=== PATIENT | male | born 2000 | race Caucasian/White ===

== ENCOUNTER 2019-06-10 22:31 | Observation (INO) ==
[2019-06-10] MEDS ORDERED: SODIUM CHLORIDE 0.9% 1000ML 2,000 ML IV ONE (22:44)
[2019-06-10] MEDS ORDERED: MoRPHine SULFATE 4 MG/ML 1 ML CARP\\VIAL IV STA (22:51)
[2019-06-10] MEDS ORDERED: ONDANSETRON INJ 2 MG/ML 2 ML VIAL IV STA (22:51)
[2019-06-10 23:21] LABS: Basophils # (auto) 0.01 K/uL (0-0.2); Basophils % (auto) 0.2 %; Eosinophils # (auto) 0.01 K/uL (0-0.5); Eosinophils % (auto) 0.2 %; Hematocrit (blood only) 41.9 % (42-52); Immature Granulocytes # (auto) 0.01 K/uL (0.00-0.02); Immature Granulocytes % (auto) 0.2 %; Lymphocytes # (auto) 1.11 K/uL (1.2-3.4); Lymphocytes % (auto) 16.8 %; Mean Corpuscular Hemoglobin 31.7 pg (25-34); Mean Corpuscular Hgb Conc 35.8 g/dL (32-36); Mean Corpuscular Volume 88.6 fL (80-100); Mean Platelet Volume 9.8 fL (7.4-10.4); Monocytes # (auto) 0.73 K/uL (0.11-0.59); Monocytes % (auto) 11.1 %; Neutrophils # (auto) 4.73 K/uL (1.4-6.5); Neutrophils % (auto) 71.5 %; Platelet Count 196 K/uL (130-400); RDW Standard Deviation 42.2 fL (36.4-46.3); Red Blood Count 4.73 M/uL (4.7-6.1)
[2019-06-10 23:40] LABS: Albumin Level 3.7 gm/dl (3.4-5.0); BUN Creatinine Ratio 13.3 (10-20); Est GFR (Non-African American) 125.1; Potassium 3.1 mmol/L (3.5-5.1)
[2019-06-10 23:43] LABS: Albumin Globulin Ratio 0.8 (0.9-2); Bilirubin,Total 0.6 mg/dl (0.2-1); Globulin 4.6 gm/dl (2.5-4.0); Total Protein 8.4 gm/dl (6.4-8.2)
[2019-06-10] MEDS ORDERED: IOVERSOL 100ml IV PRN (23:44)
[2019-06-11] MEDS ORDERED: KETOROLAC TROMETHAMINE 15 MG/ML VIAL IV ONE (00:21)
[2019-06-11] MEDS ORDERED: HYDROmorphone INJ 0.5 MG/0.5 ML SYR IV STA (00:21)
[2019-06-11] MEDS ORDERED: SODIUM CHLORIDE 0.9% 1000ML 1,000 ML IV ONE (00:21)
--- NOTE | 2019-06-11 00:54 | Emergency Department Note ---
Entered by Ruth Sheth acting as a scribe for Rudy León DO History of Present Illness General Chief complaint: Abdominal Pain Stated complaint: ULCERATIVE COLITIS,STOMACH PAINS,CRAMPS Source: patient History of Present Illness Provider complaint: abdominal pain Onset (ago): hour(s) (this morning) Location: abdomen (mid) Severity: similar to prior episodes Pain Consistency: + other (worsening) Maximum Pain Intensity: 7 Relieved By: + none Associated symptoms: + nausea/vomiting and + other (+diarrhea, -pain/burning during urination, +cough, +runny nose) The patient is a 18 year old male who presents to the Emergency Room with complaints of worsening abdominal pain that started this morning. The patient reports that he has a history of ulcerative colitis and this pain feels worse than normal. He notes that he was diagnosed several months ago by Dr. Barker. He notes that had 3 episodes of nausea and vomiting today. He states that she has been experiencing diarrhea since yesterday. He denies any pain or burning during urination. He mentions that he has been experiencing cough and runny nose for the past week which has since resolved. Patient normally does not have vomiting. He notes his pain is in the lower right/infraumbilical region and he also does have some in the epigastric region. Home Medications Home Medications Medication Instructions Recorded Confirmed Type azathioprine [Imuran] 0 mg PO QAM 06/11/19 06/11/19 History budesonide 0 mg PO TID 06/11/19 06/11/19 History Allergies Allergy/AdvReac Type Severity Reaction Status Date / Time No Known Allergies Allergy Unverified 06/11/19 01:01 Past Med/Surg History Medical History Ulcerative colitis Social History Preferred Language: Greenlandic Feels Safe at Home: Yes Smoking Status: Never smoker Review of Systems See HPI for pertinent positives & negatives. and A total of 10 systems reviewed and were otherwise negative Physical Exam Vital Signs Vital Signs - 24 hr 06/10/19 22:34 06/10/19 23:40 Temperature 36.6 C Temperature Source Oral Pulse Rate 80 Respiratory Rate 18 Respiratory Effort / Characteristics Non-Labored Spontaneous Respiratory Depth Normal Respiratory Pattern Regular Blood Pressure 122/84 Blood Pressure Mean 96 Blood Pressure Position Sitting Pulse Oximetry 99 95 Oxygen Delivery Method Room Air Room Air Sepsis Recent Fever Within 48 Hours No Sepsis Action Taken by Nursing No Action Required GENERAL: alert, well nourished, sitting up in bed, disheveled, non-toxic EYE EXAM: normal conjunctiva OROPHARYNX: no exudate, no erythema, lips, buccal mucosa, and tongue normal and mucous membranes are moist NECK: supple, no nuchal rigidity, no adenopathy, non-tender LUNGS: Clear to auscultation. Normal chest wall mechanics HEART: no murmurs, S1 normal and S2 normal ABDOMEN: abdomen soft, tenderness to palpation of supraumbilical/RLQ area, normo-active bowel sounds, no masses, no rebound or guarding. BACK: Back is symmetrical on inspection and there is no deformity, no midline tenderness, no CVA tenderness. SKIN: no rashes and no bruising UPPER EXTREMITIES: upper extremities are grossly normal. LOWER EXTREMITIES: No pitting edema. NEURO EXAM: Normal sensorium, cranial nerves II-XII grossly intact, normal speech, no gross weakness of arms, no gross weakness of legs. Course Course ED COURSE: Vital signs were reviewed and showed normotensive The patients medical record was reviewed The above diagnostic studies were performed and reviewed. ED treatments and interventions as stated above. 2245: The patient was evaluated in room C2B. A complete history and physical examination was performed. 1220: I reevaluated the patient and updated him on his results. 0055: Received a phone call from [facility] about acute appendicitis. 0056: Discussed with Dr. Benitez who will evaluate the patient for acute appendicitis. 0058: Patient was updated at bedside and all questions were answered. Based on the patients age, coexisting illnesses, exam and lab findings the decision to treat as an inpatient was made. The patient remained stable while under my care. Administered Medications Sodium Chloride (Nss 1000ml) 1,000 mls @ 999 mls/hr IV .Q1H1M ONE Stop: 06/11/19 01:21 Last Admin: 06/11/19 00:42 Dose: 999 mls/hr Documented by: [id number] Ioversol (Optiray 320 100ml) 100 ml IV ONCE PRN PRN Reason: Interaction Checking Stop: 06/14/19 23:43 Last Admin: 06/10/19 23:44 Dose: 92 ml Documented by: [id number] Discontinued Medications Hydromorphone HCl (Dilaudid) 0.5 mg IV NOW STA Stop: 06/11/19 00:22 Last Admin: 06/11/19 00:41 Dose: 0.5 mg Documented by: [id number] Sodium Chloride (Nss 1000ml) 2,000 mls @ 999 mls/hr IV .Q2H1M ONE Stop: 06/11/19 00:44 Last Admin: 06/10/19 23:29 Dose: 999 mls/hr Documented by: [id number] Ketorolac Tromethamine (Toradol) 15 mg IV NOW ONE Stop: 06/11/19 00:22 Last Admin: 06/11/19 00:42 Dose: 15 mg Documented by: [id number] Morphine Sulfate (Morphine Sulfate) 4 mg IV NOW STA Stop: 06/10/19 22:52 Last Admin: 06/10/19 23:30 Dose: 4 mg Documented by: [id number] Ondansetron HCl (Zofran) 4 mg IV NOW STA Stop: 06/10/19 22:52 Last Admin: 06/10/19 23:29 Dose: 4 mg Documented by: [id number] Medical Decision Making Differential Diagnosis Differential diagnoses includes but is not limited to gastritis, peptic ulcer disease, GERD, gallbladder disease, pancreatitis, small bowel obstruction, acute coronary syndrome, pericarditis, ischemic bowel, irritable bowel disease, irritable bowel syndrome, appendicitis, diverticulitis, malignancy, hernia, urinary tract infection, torsion, perforation, trauma, infectious. Medical Records Attestation: I reviewed the patient's medical records. Home Medications Current Medication List: was personally reviewed by me Laboratory Data Attestation: I reviewed the patient's lab results. Result diagrams: 06/10/19 23:02 06/10/19 23:02 Lab Results 06/10/19 06/10/19 Range/Units 23:02 23:02 WBC 6.60 (4.8-10.8) K/uL RBC 4.73 (4.7-6.1) M/uL Hgb 15.0 (14.0-18.0) g/dL Hct 41.9 L (42-52) % MCV 88.6 (80-100) fL MCH 31.7 (25-34) pg MCHC 35.8 (32-36) g/dL RDW Std Deviation 42.2 (36.4-46.3) fL RDW Coeff of Oneil 13.0 (11.5-14.5) % Plt Count 196 (130-400) K/uL MPV 9.8 (7.4-10.4) fL Immature Gran % (Auto) 0.2 % Neut % (Auto) 71.5 % Lymph % (Auto) 16.8 % Snyder % (Auto) 11.1 % Eos % (Auto) 0.2 % Baso % (Auto) 0.2 % Immature Gran # (Auto) 0.01 (0.00-0.02) K/uL Neut # (Auto) 4.73 (1.4-6.5) K/uL Lymph # (Auto) 1.11 L (1.2-3.4) K/uL Snyder # (Auto) 0.73 H (0.11-0.59) K/uL Eos # (Auto) 0.01 (0-0.5) K/uL Baso # (Auto) 0.01 (0-0.2) K/uL Sodium 138 (136-145) mmol/L Potassium 3.1 L (3.5-5.1) mmol/L Chloride 104 (98-107) mmol/L Carbon Dioxide 26 (21-32) mmol/L Anion Gap 8.0 (3-11) BUN 12 (7-18) mg/dl Creatinine 0.87 (0.6-1.4) mg/dl Est Cr Clr Drug Dosing 114.0 ml/min Est GFR ( Amer) 145.0 Est GFR (Non-Af Amer) 125.1 BUN/Creatinine Ratio 13.3 (10-20) Glucose 98 (70-99) mg/dl Calcium 9.0 (8.5-10.1) mg/dl Total Bilirubin 0.6 (0.2-1) mg/dl AST 10 L (15-37) U/L ALT 15 (12-78) U/L Alkaline Phosphatase 69 (45-117) U/L Total Protein 8.4 H (6.4-8.2) gm/dl Albumin 3.7 (3.4-5.0) gm/dl Globulin 4.6 H (2.5-4.0) gm/dl Albumin/Globulin Ratio 0.8 L (0.9-2) Lipase 44 L (73-393) U/L Blood Pressure Blood Pressure Findings: Elevated blood pressure Blood Pressure Disposition: Referred to patients primary care provider RONDA Narrative Patient is a 18-year-old male with a past medical history of ulcerative colitis diagnosed several months ago followed at [facility] who presents the ER for infraumbilical abdominal pain associated with nausea vomiting and he does have some mild diarrhea. IV was established blood work was obtained and showed no significant leukocytosis or anemia. BMP with mild hypokalemia. LFTs bilirubin and lipase was unremarkable. Patient was acutely tender to palpation consequently CT abdomen pelvis was performed and showed acute appendicitis measuring 1.1 cm. Patient was given IV cefoxitin. He was given 2 dose of IV morphine and Zofran. He was updated bedside. Discussed with general surgery and they will evaluate the patient. Impression & Plan Acute appendicitis, Abdominal pain, Acute hypokalemia Discharge Plan Visit Data Chief Complaint: Abdominal Pain Stated Complaint: ULCERATIVE COLITIS,STOMACH PAINS,CRAMPS ED Provider: Rudy León Discharge Problem: Acute appendicitis, Abdominal pain, Acute hypokalemia Patient Disposition: Being Evaluated by Hospitalist Forms Stand Alone Forms: [facility] [employer] Prescriptions Prescriptions: No Action budesonide 3 mg Capsule,Delayed,Extend.Release 0 mg PO TID RF: 0 azathioprine [Imuran] 50 mg Tablet 0 mg PO QAM RF: 0 Referrals Referrals: PCP,NO [Primary Care Provider] - Discharge Problem: Acute appendicitis Qualifiers: Acute appendicitis type: unspecified acute appendicitis type Qualified Code(s): K35.80 - Unspecified acute appendicitis Abdominal pain Qualifiers: Abdominal location: unspecified location Qualified Code(s): R10.9 - Unspecified abdominal pain The scribe's documentation has been prepared under my direction and personally reviewed by me in its entirety. I confirm that the note above accurately reflects all work, treatment, procedures, and medical decision making performed by me.
[2019-06-11] MEDS ORDERED: cefOXitin 2,000 MG/60 ML BAG IV STA (00:58)
[2019-06-11 01:20] LABS: Appearance Urine Clear (Clear); Bilirubin Urine Negative (Negative); Blood Urine Negative (Negative); Color Urine Yellow; Glucose Urine UA Negative (Negative); Leukocyte Esterase Urine Negative (Negative); Nitrite Urine Negative (Negative); Protein Urine Negative (Negative); Specific Gravity Urine > 1.045 (1.000-1.030); Urobilinogen Urine Negative (Negative); pH Urine 6.5 (4.5-7.5)
[2019-06-11 01:31] LABS: Ketones Urine 4+ (Negative)
[2019-06-11] MEDS ORDERED: HEPARIN (PORCINE) 1000 UNIT/ML 10 ML (CATH LAB USE ONLY) ONE (01:59)
[2019-06-11] MEDS ORDERED: BUPIVACAINE 0.5 % 5 MG/1 ML MPF 30ML VIAL ONE (01:59)
[2019-06-11] MEDS ORDERED: CEFAZOLIN 250 MG/ML 1 GM VIAL ONE (01:59)
[2019-06-11] MEDS ORDERED: SUCCINYLCHOLINE CHLORIDE 20 MG/ML 10 ML VIAL ONE (02:03)
[2019-06-11] MEDS ORDERED: LIDOCAINE HCL 2% 2 ML VIAL/AMP(20MG/ML) INFIL ONE (02:03)
[2019-06-11] MEDS ORDERED: fentaNYL citrate 100 MCG/2 ML VIAL ONE ×2 (02:03→03:08)
[2019-06-11] MEDS ORDERED: PROPOFOL IV EMULSION 10 MG/ML 20 ML VIAL IV ONE ×2 (02:03→03:10)
[2019-06-11] MEDS ORDERED: fentaNYL citrate 100 MCG/2 ML VIAL IV PRN (02:08)
[2019-06-11] MEDS ORDERED: ONDANSETRON INJ 2 MG/ML 2 ML VIAL IV PRN ×2 (02:08→04:53)
[2019-06-11] MEDS ORDERED: ePHEDrine sulfate 50 MG/ML AMP IV PRN (02:08)
[2019-06-11] MEDS ORDERED: ATROPINE SULFATE 0.1 MG/ML 10ML SYR IV PRN (02:08)
--- NOTE | 2019-06-11 02:29 | History & Physical Report ---
Date of Service June 11, 2019 Assessment & Plan (1) Acute appendicitis: This patient's history, physical findings, laboratories and CT findings are consistent with appendicitis. I have recommended a laparoscopic appendectomy. I explained the possible need to convert to an open procedure. I explained the possible complications associated with those procedures. The patient wishes to go ahead with surgery and has signed a consent form. He understands that he is at increased risk relative to the average population for developing complications considering his ulcerative colitis and medication treatment History of Present Illness Chief Complaint: Right lower quadrant abdominal pain Primary Care Provider: NO PCP This is a 18-year-old male who presented to the emergency room with a complaint of pain in the right lower quadrant that began after having eaten breakfast yesterday. He has a history of ulcerative colitis that was diagnosed a few months ago. That has been improving from a symptomatology standpoint. He has never had pain like this that he is now experiencing. This is different than what he experiences with the ulcerative colitis. The pain was initially more like a dull ache but then as the day progressed it increased in intensity and became much more sharp. It does not radiate. He had nausea and a few episodes of vomiting without hematemesis. He has been having bowel movements consistent with his ulcerative colitis. There has been a little bit of blood. He has no dysuria or hematuria. Allergies Allergy/AdvReac Type Severity Reaction Status Date / Time No Known Allergies Allergy Unverified 06/11/19 01:01 Home Medications Home Medications Medication Instructions Recorded Confirmed Type azathioprine [Imuran] 0 mg PO QAM 06/11/19 06/11/19 History budesonide 0 mg PO TID 06/11/19 06/11/19 History Past Med/Surg History Medical History Ulcerative colitis Social History Preferred Language: Portuguese Feels Safe at Home: Yes Smoking Status: Never smoker Review of Systems Review of Systems: All systems reviewed & are unremarkable except as noted in HPI & below Physical Exam Constitutional: WD/WN, vitals as above Neck: trachea midline Respiratory: normal respiratory effort, lungs clear to auscultation Cardiovascular: Rate/Rhythm: regular rate and regular rhythm Gastrointestinal (Abdomen): Inspection/Auscultation: normal bowel sounds; abd omen not distended Percussion/Palpation: + abdomen tender (Right lower quadrant to moderate palpation) and abdomen soft; abdomen not rigid Skin: no rashes, warm and dry Lymphatic: no cervical lymphadenopathy Results & Data Vital Signs (Past 12 Hours) Vital Signs Temp Pulse Pulse Resp BP BP Pulse Ox 06/11/19 00:32 81 18 152/78 H 99 06/10/19 23:40 95 06/10/19 22:34 36.6 C 80 18 122/84 99 Laboratory Results 06/11/19 06/10/19 06/10/19 Range/Units 00:31 23:02 23:02 WBC 6.60 (4.8-10.8) K/uL RBC 4.73 (4.7-6.1) M/uL Hgb 15.0 (14.0-18.0) g/dL Hct 41.9 L (42-52) % MCV 88.6 (80-100) fL MCH 31.7 (25-34) pg MCHC 35.8 (32-36) g/dL RDW Std Deviation 42.2 (36.4-46.3) fL RDW Coeff of Oneil 13.0 (11.5-14.5) % Plt Count 196 (130-400) K/uL MPV 9.8 (7.4-10.4) fL Immature Gran % (Auto) 0.2 % Neut % (Auto) 71.5 % Lymph % (Auto) 16.8 % [place] % (Auto) 11.1 % Eos % (Auto) 0.2 % Baso % (Auto) 0.2 % Immature Gran # (Auto) 0.01 (0.00-0.02) K/uL Neut # (Auto) 4.73 (1.4-6.5) K/uL Lymph # (Auto) 1.11 L (1.2-3.4) K/uL [place]son # (Auto) 0.73 H (0.11-0.59) K/uL Eos # (Auto) 0.01 (0-0.5) K/uL Baso # (Auto) 0.01 (0-0.2) K/uL Sodium 138 (136-145) mmol/L Potassium 3.1 L (3.5-5.1) mmol/L Chloride 104 (98-107) mmol/L Carbon Dioxide 26 (21-32) mmol/L Anion Gap 8.0 (3-11) BUN 12 (7-18) mg/dl Creatinine 0.87 (0.6-1.4) mg/dl Est Cr Clr Drug Dosing 114.0 ml/min Est GFR ( Amer) 145.0 Est GFR (Non-Af Amer) 125.1 BUN/Creatinine Ratio 13.3 (10-20) Glucose 98 (70-99) mg/dl Calcium 9.0 (8.5-10.1) mg/dl Total Bilirubin 0.6 (0.2-1) mg/dl AST 10 L (15-37) U/L ALT 15 (12-78) U/L Alkaline Phosphatase 69 (45-117) U/L Total Protein 8.4 H (6.4-8.2) gm/dl Albumin 3.7 (3.4-5.0) gm/dl Globulin 4.6 H (2.5-4.0) gm/dl Albumin/Globulin Ratio 0.8 L (0.9-2) Lipase 44 L (73-393) U/L Urine Color Yellow Urine Appearance Clear (Clear) Urine pH 6.5 (4.5-7.5) Ur Specific [place] > 1.045 H (1.000-1.030) Urine Protein Negative (Negative) Urine Glucose (UA) Negative (Negative) Urine Ketones 4+ H (Negative) Urine Blood Negative (Negative) Urine Nitrite Negative (Negative) Urine Bilirubin Negative (Negative) Urine Urobilinogen Negative (Negative) Ur Leukocyte Esterase Negative (Negative) Diagnostic Findings CT scan of the abdomen and pelvis shows a dilated appendix with hyperemia and appendicoliths with a small amount of pericholecystic inflammatory change. There is also some thickening of the bowel wall consistent with his ulcerative colitis. (1) Acute appendicitis Acute appendicitis type: unspecified acute appendicitis type Qualified Code(s): K35.80 - Unspecified acute appendicitis
--- NOTE | 2019-06-11 02:30 | Anesthesiology Consultation ---
Date of Service June 11, 2019 Assessment & Plan (1) Encounter for pre-operative examination: Chart Review Chart Review: Acceptable Risk for Surgery Consults Requested none ASA [id number] Proposed Anesthesia Anesthesia Type: General Risk / Benefits Reviewed With: PT / POA / Parent / Guardian, Accepts Plan and Informed Consent Obtained History Surgery Operation Date: 06/11/19 03:00 Proposed Procedures p Laparoscopic Appendectomy - Mehdi Benitez MD Height/Weight Height: 6 ft Weight: 59 kg Allergies Allergy/AdvReac Type Severity Reaction Status Date / Time No Known Allergies Allergy Unverified 06/11/19 01:01 Medications Home Medications Medication Instructions Recorded Confirmed Last Taken azathioprine [Imuran] 0 mg PO QAM 06/11/19 06/11/19 Unknown budesonide 0 mg PO TID 06/11/19 06/11/19 Unknown Active Medications Generic Name Dose Route Start Last Admin Trade Name Freq PRN Reason Stop Dose Admin Ioversol 100 ml 06/10/19 23:44 06/10/19 23:44 Optiray 320 100ml IV 06/14/19 23:43 92 ml ONCE PRN Administration Interaction Checking NPO Date Last Intake of Fluids: 06/11/19 Time Last Intake of Fluids: 00:00 Date Last Intake of Solids: 06/10/19 Time Last Intake of Solids: 08:00 Past Medical History Medical History (Updated 06/11/19 @ 02:30 by Reji Parson DO) Ulcerative colitis Exercise / Class Metabolic Activity II 4-5 Yardwork/Stairs/Walk up hill Past Surgical History Surgical History (Updated 06/11/19 @ 02:29 by Reji Parson DO) S/P colonoscopy Past Anesthesia History No Hx of Anesthesia Complications and No Family Hx of Anesthesia Complications History of PONV No Hx of PONV and No Hx of Motion Sickness Social History Smoking Status: Never smoker Physical Exam Vital Signs Last Vital Signs Temp 97.9 F 06/10/19 22:34 Pulse 81 06/11/19 00:32 Resp 18 06/11/19 00:32 BP 152/78 H 06/11/19 00:32 Pulse Ox 99 06/11/19 00:32 ENMT Mouth: no dentition abnormality Thyromental Distance: > or= 3.5 Finger Breadths Mallampati Class: II Neck normal visual inspection Respiratory normal respiratory effort Auscultation: lungs clear to auscultation bilaterally Cardiovascular Rate/Rhythm: regular rate and regular rhythm Testing Laboratory Results 06/10/19 23:02 06/10/19 23:02 Urine Color Yellow 06/11/19 00:31 Urine Appearance Clear (Clear) 06/11/19 00:31 Urine pH 6.5 (4.5-7.5) 06/11/19 00:31 Ur Specific [place] > 1.045 (1.000-1.030) H 06/11/19 00:31 Urine Protein Negative (Negative) 06/11/19 00: Urine Glucose (UA) Negative (Negative) 06/11/19 00: Urine Ketones 4+ (Negative) H 06/11/19 00:31 Urine Nitrite Negative (Negative) 06/11/19 00:31 Ur Leukocyte Esterase Negative (Negative) 06/11/19 00:31
--- NOTE | 2019-06-11 03:47 | Post Operative Brief Note ---
Immediate Post Op Note v1 Date of Surgery June 11, 2019 Pre & Post Diagnosis Operation Date: 06/11/19 03:00 Pre-Op Diagnosis: Acute appendicitis Post-Op Diagnosis: Acute appendicitis I identified the patient and participated in the time-out.: Yes Procedure Operation Date: 06/11/19 03:00 Actual Procedures p Laparoscopic Appendectomy - Mehdi Benitez MD Surgeon Mehdi Benitez MD Auto Battery Builder None Estimated Blood Loss 5 Findings Consistent with Post-Op Diagnosis Specimens Appendix Drains Duffy Catheter (Inserted at 0255 for clear yellow urine, discontinued at end of case by GRACIE Vera)
[2019-06-11] MEDS ORDERED: ROCURONIUM BROMIDE 10 MG/ML 5 ML VIAL ONE (03:52)
--- NOTE | 2019-06-11 04:01 | Anesthesiology Progress Note ---
Date of Service June 11, 2019 Anesthesia Post Procedure Vital Signs Vital Signs: Temp Pulse Pulse Resp BP BP Pulse Ox 06/11/19 00:32 81 18 152/78 H 99 06/10/19 23:40 95 06/10/19 22:34 97.9 F 80 18 122/84 99 Pain Intensity Abdomen: Pain Intensity: 4 Transfer of Care Handoff Completed per policy Notes Mental Status: alert / awake / arousable and participated in evaluation Patient Amnestic to Procedure: Yes Nausea / Vomiting: adequately controlled Pain: adequately controlled Airway Patency, RR, SpO2: stable & adequate BP & HR: stable & adequate Hydration State: stable & adequate Anesthetic Complications: no major complications apparent and Pt Satisfied with anesthetic care
[2019-06-11] MEDS ORDERED: MoRPHine SULFATE 4 MG/ML 1 ML CARP\\VIAL IV PRN (04:53)
[2019-06-11] MEDS ORDERED: SODIUM CHLORIDE 0.9% 1000ML 1,000 ML IV SCH (04:53)
[2019-06-11] MEDS: D5W AND 1/2NSS + 20MEQ KCL 20 MEQ/1,000 ML BAG IV SCH ×2 (05:17→15:08)
--- NOTE | 2019-06-11 07:33 | CT Scan Report ---
ABDOMEN AND PELVIS CT WITH IV CONTRAST CT DOSE: 281.13 mGy.cm HISTORY: Acute generalized abdominal pain abd pain TECHNIQUE: Multiaxial CT images of the abdomen and pelvis were performed following the IV administrat ion of 92 cc of Optiray 320, A dose lowering technique was utilized adhering to the principles of AL AGNES. COMPARISON STUDY: None. FINDINGS: Clear lung bases. No pneumatosis or pneumoperitoneum. Imaged inferior cardiac chambers are unremarkab le. The spleen measures the upper limits of normal in size at 12 cm. Pancreas and adrenal glands are unremarkable. Moderate periportal edema likely related to overhydration. Patency of the hepatic and p ortal veins. Mild gallbladder wall thickening. No cholelithiasis or biliary ductal dilation identifie d. Liver is otherwise unremarkable. Kidneys, ureters and urinary bladder are unremarkable. Trace free pelvic fluid. No bowel obstruction. There is wall thickening noted within the majority of the colon and also within the terminal ileum. The appendix is dilated and fluid-filled with mucosal hyperemia measuring up to 1.2 cm. There are sev eral appendicoliths measuring up to 6 mm. No evidence of perforation or drainable fluid collection. M ultiple prominent and mildly enlarged lymph nodes of the right lower quadrant mesentery left measure up to 11 mm in short axis. Soft tissues are unremarkable. Bones appear intact. IMPRESSION: 1. Dilated and fluid-filled appendix with multiple associated appendicoliths suggests acute uncomplic ated appendicitis. No evidence of perforation or drainable fluid collection. 2. Mild wall thickening throughout the majority of the colon and also within the terminal ileum is stanton ggestive of a nonspecific enterocolitis. 3. Prominent and enlarged lymph nodes of the right lower quadrant mesentery are likely on a reactive basis. 4. Trace free pelvic fluid. 5. Mild gallbladder wall thickening with periportal edema, likely secondary to overhydration. ACT 112: Negative or not required by law. The above report was generated using voice recognition software. It may contain grammatical, syntax o r spelling errors. Electronically signed by: Jared Gautam M.D. 06/11/2019 7:31 AM
--- NOTE | 2019-06-11 08:14 | Operative Report ---
DATE OF OPERATION: 06/11/2019 PREOPERATIVE DIAGNOSIS: Appendicitis. POSTOPERATIVE DIAGNOSIS: Appendicitis. PROCEDURE: Laparoscopic appendectomy. SURGEON: Mehdi Benitez MD FINDINGS: The appendix right down to about a centimeter from the base was firm, hyperemic. There was no evidence of perforation or abscess. There was some hyperemia of the colon, but the wall was just mildly thickened. TECHNIQUE: The patient was given a general anesthetic and the area was prepped and draped in the usual sterile fashion. The skin underneath the umbilicus was anesthetized with 0.5% Marcaine. Skin incision was made and was carried down through the subcutaneous tissue to the fascia which was grasped with 2 Todd clamps and incised between. The peritoneum was identified, incised, and the introducer was placed bluntly. The abdomen was then insufflated to a pressure of 15 mmHg with carbon dioxide. The site for the lower midline introducer was chosen and the skin and subcutaneous tissue and fascia were anesthetized with 0.5% Marcaine. A small incision was made, and the introducer was placed under direct vision. The appendix was easily identified. The left lower quadrant introducer site was chosen and subcutaneous tissue, fascia and peritoneum were anesthetized with 0.5% Marcaine and the skin incision was made, and the introducer was placed under direct vision. There was omentum loosely adherent to the appendix that was easily . Anterior traction was placed on the appendix. There was some adhesion to the lateral abdominal wall and these adhesions were taken down using blunt dissection until I could completely elevate the appendix. I was then able to establish a plane between the mesoappendix and the base of the appendix at the level of the cecum and the mesoappendix was divided using the Endo-FIORELLA stapler. That allowed me then to confirm that I was at the base and the appendix was then amputated right at the junction with the cecum using the Endo-FIORELLA stapler. The appendix was placed into an Endobag and brought out through the left lower quadrant introducer site. The introducer was replaced. The right lower quadrant was irrigated and irrigation was removed. The staple lines were inspected and there was no bleeding. The right lower quadrant was irrigated and irrigation removed. The irrigation in the right upper quadrant or pelvis was removed. The gas was allowed to escape and introducers were removed. The fascia of the umbilical and left lower quadrant introducer sites was closed with interrupted 0 Vicryl. The skin of all the incisions was closed with 4-0 Monocryl in either an interrupted or running subcuticular fashion. Skin was cleansed, dried, benzoin placed, Steri-Strips applied. Estimated blood loss was 5 mL. Sponge, needle and instrument counts were correct prior to closure. The patient tolerated the surgical procedure without complication and was transferred to recovery. I attest to the content of the Intraoperative Record and any orders documented therein. Any exception s are noted below.
[2019-06-11] MEDS: OXYCODONE/ACETAMINOPHEN 5mg/325mg TAB PO PRN (15:27)
--- NOTE | 2019-06-11 16:31 | Surgery Progress Note ---
Date of Service June 11, 2019 Assessment & Plan (1) Acute appendicitis: Postoperative day 0 status post laparoscopic appendectomy Stable Continue ambulation Not ready for discharge at present Postoperative activity restrictions discussed Subjective Postoperative day 0, status post laparoscopic appendectomy Ambulating slowly Tolerated a small amount of regular food Denies nausea and vomiting Pain is controlled with analgesics Hemodynamically stable Physical Exam Gastrointestinal (Abdomen): Inspection/Auscultation: abdomen normal to inspection and normal bowel sounds; abdomen not distended Percussion/Palpation: + abdomen tender (Incisional mostly) and abdomen soft Results & Data Vital Signs (Past 12 Hours) Vital Signs Temp Pulse Pulse Resp BP Pulse Ox 06/11/19 15:17 37.2 C 90 18 110/65 96 06/11/19 11:58 37.2 C 87 18 103/63 96 06/11/19 07:30 36.7 C 86 18 113/68 98 06/11/19 06:30 37.0 C 89 16 119/65 96 06/11/19 05:30 36.8 C 78 16 110/67 96 06/11/19 05:00 36.8 C 74 16 114/69 94 06/11/19 04:54 36.9 C 79 14 117/66 97 (1) Acute appendicitis Acute appendicitis type: unspecified acute appendicitis type Qualified Code(s): K35.80 - Unspecified acute appendicitis
[2019-06-12] MEDS: OXYCODONE/ACETAMINOPHEN 5mg/325mg TAB PO PRN (03:46)
[2019-06-12] MEDS ORDERED: COUGH DROP (SUGAR FREE) LOZ 24 LOZ/1 BOX BUCCAL ONE (03:48)
--- NOTE | 2019-06-12 09:39 | Surgery Progress Note ---
Date of Service June 12, 2019 Assessment & Plan (1) Acute appendicitis: doing well ok for d/c instructions given. f/u with Dr. Benitez in 1-2 weeks. Subjective pt seen. feeling better. no new complaints. mckenna diet. pain controlled. Physical Exam Physical Exam: alert. nad abd: soft. expected tenderness. wounds look good. Results & Data Vital Signs (Past 12 Hours) Vital Signs Temp Pulse Resp BP Pulse Ox 06/12/19 07:05 36.8 C 99 H 18 110/69 99 06/12/19 04:56 37.2 C 87 06/12/19 03:45 38.1 C H 102 H 18 113/61 96 06/11/19 23:02 37.8 C H 93 H 16 113/71 98 PG Care Time/CCT Total # of Minutes Spent Total Time Spent with Patient: Total time spent is greater than 50% in coordination of care (as documented) at patient's floor/unit and/or counseling patient: Coding Level of Care Code None Diagnoses Acute appendicitis K35.80 Acute appendicitis type: unspecified acute appendicitis type (1) Acute appendicitis Acute appendicitis type: unspecified acute appendicitis type Qualified Code(s): K35.80 - Unspecified acute appendicitis
--- NOTE | 2019-06-14 09:56 | Discharge Summary ---
Date of Service June 14, 2019 Admission HPI Per Admitting Provider This is a 18-year-old male who presented to the emergency room with a complaint of pain in the right lower quadrant that began after having eaten breakfast yesterday. He has a history of ulcerative colitis that was diagnosed a few months ago. That has been improving from a symptomatology standpoint. He has never had pain like this that he is now experiencing. This is different than what he experiences with the ulcerative colitis. The pain was initially more like a dull ache but then as the day progressed it increased in intensity and became much more sharp. It does not radiate. He had nausea and a few episodes of vomiting without hematemesis. He has been having bowel movements consistent with his ulcerative colitis. There has been a little bit of blood. He has no dysuria or hematuria. Principal Diagnosis Acute appendicitis Discharge Data Allergies Allergy/AdvReac Type Severity Reaction Status Date / Time No Known Allergies Allergy Unverified 06/11/19 01:01 Consultations 06/11/19 00:58 ED Decision to Admit Stat Procedures Performed Operation Date: 06/11/19 03:00 Actual Procedures p Laparoscopic Appendectomy - Mehdi Benitez MD Ordered Studies 06/10/19 22:44 CT abd pelvis IV con only Urgent Hospital Course (1) Acute appendicitis: Patient was taken to operating room for laparoscopic appendectomy possible open by Dr. Benitez. Patient found to have acute appendicitis without perforation or abscess. Patient tolerated procedure well and was transferred to recovery then to medical/surgical floor for postoperative care. His diet was advanced as tolerated. Activity as tolerated. PO Percocet prn pain with breakthrough IV Morphine prn. POD # 0 morning after procedure, vitals stable. Pain controlled but not ambulating much. Was not ready for discharge. Regular diet tolerated. POD # 1 vitals stable, afebrile, pain controlled. Patient was discharged home on POD # 1 in stable condition. Total Time Total Time Spent Total Time Spent (In Minutes): 20 Total Time Includes: Examination of the Patient, Discharge Planning and Medication Reconciliation Discharge Plan Discharge Items Patient Disposition: Home - Self-Care Reason For Visit: APPENDICITIS Discharge Diagnosis: Acute appendicitis Activity: As commented below Non-emergency contact: Surgeon Call non-emergency contact if: your temperature is above 101.5, your wound has increased redness and your wound pain has increased Follow-up/Referrals: Mehdi Benitez MD [Physician] - 06/25/19 2:05 pm (Please call to schedule a follow-up appointment. ) PCP,NO [Primary Care Provider] - (Patient will followup with his PCP when he returns home on discharge) Diet: Regular Addtl Attending Provider Instructions: Post-Surgical ~Discharge Instructions Activity Recommendations: - lifting limitation: (10 pounds for 2 weeks), - exercise/sex/sports limit: (nonstrenuous for 2 weeks), - driving or machine use limit: (none for 1 week), - Shower/bathe limit: (may shower beginning tomorrow) Diet: - Resume previous diet SPECIAL CARE INSTRUCTIONS: - May shower in 24 hours. Let water run over area and pat dry. - Leave steri strips on for one week. - Call the surgeon's office with any questions or concerns - - (ex. temperature higher than 101 degrees F, excessive bleeding or pain). MEDICATIONS: - Resume previous medications unless instructed otherwise by your surgeon. - Ibuprofen 600 mg every 6 hours with food - Percocet 1 every 4 hours, as needed for pain FOLLOW UP VISIT: - If not already scheduled, please call the office to schedule a two week follow-up appointment. Office number Pending Studies at Discharge: Yes Studies:: Pathology Stand-Alone Forms: My [facility], Opioid Pain Management, Smoking Cessation Medications and DC Order Prescriptions: New oxycodone-acetaminophen [Percocet] 5-325 mg Tablet 1 tab PO Q4H PRN (Reason: pain) Qty: 5 RF: 0 Continued budesonide 3 mg Capsule,Delayed,Extend.Release 0 mg PO TID RF: 0 azathioprine [Imuran] 50 mg Tablet 0 mg PO QAM RF: 0 Discharge Orders: Discharge Order (Routine); Ordered 06/12/19 Ordered By: Radha Duncan/Other Patient Handouts: What Is Appendicitis Admission Data Admit Date/Time: 06/11/19 03:49 Attending Provider: Mehdi Benitez Admit Provider: Mehdi Benitez Primary Care Provider: PCP,NO Other Providers: Mehdi Benitez Other Interventions: Discharge Summary Assessment (RN) Last Done: 06/12/19 10:18 DC Date/Time DO NOT enter until pt leaves facility: 06/12/19 10:39
== END 2019-06-12 10:39 | disposition home or self-care (01) ==
LOC: ED 22:31 → OR 06-11 02:23 → 3N 06-11 02:23